=== PATIENT | female | born 1995 ===

== ENCOUNTER 2022-12-27 15:22 | Emergency (ER) | payer OTHER ==
[~2022-12-27] VITALS: Ht 172.7 cm; Wt 71.7 kg
[2022-12-27] MEDS ORDERED: AMOX-CLAV 875-1 EAC1 PO (17:58)
== END 2022-12-27 18:02 | disposition home or self-care (01) ==
LOC: ER 15:22
DX: K08.89 Other specified disorders of teeth and supporting structures (principal)
CPT/HCPCS: A9270; J1885